=== PATIENT | female | born 1990 | race Caucasian/White ===

== ENCOUNTER 2019-06-05 11:11 | Emergency (ER) | payer BC, MEDICAID, SELFPAY ==
[2019-06-05 11:12] VITALS: BP 162/97; PULSE 100; RESP 16; TEMP 37.4; O2SAT 97; BMI 53.0
--- NOTE | 2019-06-05 11:32 | ED.DCSUM_ITS ---
History of Present Illness Chief Complaint: Vag Bleeding Informant: Patient Onset: Month(s) Maximum Severity: Mild Narrative: Patient presents complaining of vaginal bleeding pelvic cramps since she started her menstrual cycle 3 days ago, She has a history of severe heavy menstrual cramps and vaginal bleeding for over a year, she is been managed by the [facility]PUT[facility] SYSTEM[facility]NALYST team at one point time she was on an IUD that helped all the above but then she had to have the IUD removed, then subsequently she became , subsequently symptoms resolved but for the last year she is had heavy menstrual cycles and pelvic cramps with each menstrual cycle. Her menstrual cycle was on time she has no history of any anatomic issues causing the above she was told at one time she might have polycystic ovarian disease she has no other past history, she is been unable to reestablish care with her [facility] [employer] [facility]NALY[facility] team and she came in for evaluation. She denies being Past Medical History - Allergies and Home Meds Allergies/Adverse Reactions: Allergies No Known Allergies Allergy (Verified 06/05/19 11:12) Primary Care Physician: Sierra Verdin [Primary Care Provider] - Past Medical History: - Smoking Status: Never smoker Review of Systems ROS: - As above General: Denies: Chills, Fever, Sweats Eyes: Denies: Visual changes - bilaterally, Diplopia ENT: Denies: Rhinorrhea, Sore throat Cardiovascular: Denies: Chest pain, Palpitations Respiratory: Denies: Dyspnea, Cough, Dyspnea on exertion Gastrointestinal: Denies: Abdominal pain, Nausea, Vomiting, Diarrhea, Melena, Hematochezia Genitourinary: Reports: - - As above only complaints are pelvic cramps and v aginal bleeding. Denies: Dysuria, Hematuria, Frequency Musculoskeletal: Denies: Back pain, Extremity Pain Skin: Denies: Rash, Wounds Neurological: Denies: Headache, Weakness, Numbness Physical Exam Vital Signs/Narrative: Vital Signs Temp Pulse Resp BP Pulse Ox 06/05/19 11:12 99.3 F H 100 16 162/97 H 97 General: Well nourished, Well developed, No Acute Distress Head: Normocephalic, Atraumatic Eyes: Perrl, EOMI ENT: Moist mucous membranes, No rhinorrhea Neck: Supple, Nontender Cardiovascular: Regular rate, Regular rhythm, No murmurs Respiratory: No distress, CTA bilaterally, Chest nontender Abdomen: Soft, Nontender, Nondistended, Normal bowel sounds Back: Nontender, Normal Inspection Extremities: Nontender, No edema Skin: Normal color, No rash Neurological: Alert, Oriented x3, Cranial nerves II-XII grossly intact, Normal Strength, Normal Sensation Psychological: Normal affect, Normal Mood Diagnostic/Tx/Re-eval - Medical Decision Making Patient's physical exam is generally unremarkable her BMI is 53, there is subjective pain to the pelvic area no rebound or guarding the rest of her exam is unremarkable at this time her chief concern is pain management she has an established diagnosis of this process it is usually controlled with some type of hormone therapy she is been unable to obtain that, given all the above will obtain screening labs IV fluids pain management and reevaluate Patient screening labs are obtained and are all generally unremarkable hCG negative, see those reports reevaluation she is been medicated resting in the bed no distress of explained the test results to her at this time she agrees with the plan to follow-up with your outpatient providers see her narcotics agent for further therapy, she will be given Naprosyn for pain short course of [place] as a rescue medicine and return for change in symptoms Home stable Impression final dysfunctional uterine bleeding, pelvic cramps ED Disposition - Plan for ED Patient: Diagnosis: Dysfunctional uterine bleeding Instructions: Dysfunctional Uterine Bleeding, Dysmenorrhea Prescriptions: Naproxen [Naprosyn] 500 mg PO BID PRN #20 tab Prescription Printed Hydrocodone Bitart/Apap 5-325 [[place] 5MG-325MG] 1 tab PO Q4H PRN PRN 2 Days #10 tab PRN Reason: Pain Prescription Printed Referrals: Sierra Verdin [Primary Care Provider] -
[2019-06-05] MEDS: Ketorolac 30 MG/ML Syringe IV (11:48)
[2019-06-05] MEDS: 0.9% Normal Saline 1,000 ML 1000 ML IV (11:48)
[2019-06-05] MEDS: Ondansetron 4 MG/2 ML Vial IV (11:48)
[2019-06-05] MEDS: morphine 8 MG/ML Syringe IV (11:48)
[2019-06-05 11:57] LABS: Absolute Lymphocyte Count 3.42 X10^3/uL (0.83-4.51); Absolute Neutrophil Count 6.9 X10^3/uL (2.0-7.7); Basophil# 0.07 X10^3/uL; Basophil% 0.6 % (0-1); Eosinophil# 0.35 X10^3/uL; Hematocrit 38.8 % (37-47); Hemoglobin 12.6 g/dL (12.0-15.0); Lymphocyte # 3.42 X10^3/ul (4.0); Lymphocyte % 29.6 % (19-41); Mean Corp Hgb Conc 32.5 g/dL (32-36); Mean Corpuscular Hgb 27.3 pg (27.0-32.0); Mean Platelet Vol. 8.8 fl (6.2-12.0); Monocyte% 6.9 % (0-10); NRBC Flagged by Analyzer 0 % (0-5); Neutrophil # 6.88 X10^3/uL (2.7-7.7); Neutrophil % 59.5 % (47-70); Platelet Count 465 K/mm3 (150-450); RBC Distribution Width CV 12.8 % (11.6-14.6); RBC Distribution Width SD 38.5 fl (35.1-43.9); Red Blood Count 4.62 M/mm3 (4.2-5.4); White Blood Count 11.6 K/mm3 (4.4-11.0)
[2019-06-05 12:05] LABS: Internal QC Validated? YES +Cl - CLEAR BKGD; Pregnancy, Serum, hCG Quali. NEGATIVE Negative
[2019-06-05 12:09] LABS: Anion Gap 6 (5-15); BUN 10 mg/dL (7-18); BUN/Creat Ratio 12.6 RATIO (10-20); Calcium,Total 8.9 mg/dL (8.5-10.1); Chloride 108 mmol/L (98-107); Creatinine, Serum 0.79 mg/dL (0.55-1.02); EST Glomerular Filtration Rate 91 mL/min (>60); Est Glom Filt Rate - Afr Amer 110 mL/min (>60); Estimated Creatinine Clearance 94.55 ml/min; Glucose 92 mg/dL (74-106); Sodium Level 139 mmol/L (136-145)
== END 2019-06-05 13:02 | disposition home or self-care (01) ==
LOC: ED 11:48
PROVIDERS: Emergency Provider Emergency Medicine; Family Provider Family Medicine; PCP Family Medicine
DX: N93.8 Other specified abnormal uterine and vaginal bleeding (principal)
CPT/HCPCS: 80048; 84703; 85025; 96361; 96374; 96375; 99283; J7030; A4216; J2405